=== PATIENT | male | born 1950 | race Caucasian/White ===

== ENCOUNTER 2019-12-17 08:18 | Inpatient (IN) | payer MEDICARE, OTHER ==
[~2019-12-17] VITALS: Ht 185.4 cm; Wt 95.9 kg
[2019-12-17 08:59] LABS: BASOPHILS % (AUTO) 0.3 % (0-1); EOSINOPHILS # (AUTO) 0.1 X10'3 (0-0.9); HEMATOCRIT 40.9 % (42.0-52.0); LYMPHOCYTES # (AUTO) 0.7 X10'3 (1.1-4.8); LYMPHOCYTES % (AUTO) 8.9 % (21-51); MEAN CORPUSCULAR HEMOGLOBIN 31.8 PG (27.0-31.0); MEAN CORPUSCULAR HGB CONC 34.3 g/dL (33.0-36.5); MEAN CORPUSCULAR VOLUME 92.5 FL (78-98); MONOCYTES # (AUTO) 1.5 X10'3 (0-0.9); MONOCYTES % (AUTO) 18.1 % (2-12); NEUTROPHILS # (AUTO) 5.8 X10'3 (1.8-7.7); NEUTROPHILS % (AUTO) 71.7 % (42-75); PLATELET COUNT 332 X10'3 (140-440); RED BLOOD COUNT 4.42 X10'6 (4.70-6.10); RED CELL DISTRIBUTION WIDTH 13.5 % (11.5-14.5); WHITE BLOOD COUNT 8.1 X10'3 (4.5-11.0)
[2019-12-17 09:07] LABS: CLARITY,URINE CLEAR (Clear); GLUCOSE, URINE NEGATIVE (Neg); KETONES,URINE 15 mg/dl (Neg); LEUKOCYTE ESTERASE ,URINE NEGATIVE (Neg); NITRITES, URINE NEGATIVE (Neg); OCCULT BLOOD,URINE TRACE-INTACT (Neg); PH,URINE 6.5 (4.8-8.0); PROTEIN,URINE 30 mg/dl (Neg); UROBILINOGEN,URINE 0.2 E.U/dL (0.2-1.0)
[2019-12-17 09:15] LABS: COLOR,URINE DARK YELLOW (Yellow); UA COLLECTION TYPE VOIDED
[2019-12-17 09:18] LABS: BACTERIA,URINE FEW /HPF (Neg); MUCUS STRANDS FEW /LPF (Neg); RBC,URINE 0-2 /HPF (0-2); SQUAMOUS EPITHELIAL CELL,UR FEW /LPF (FEW); WBC,URINE 0-4 /HPF (0-4)
[2019-12-17 09:22] LABS: ALANINE AMINOTRANSFERASE 30 U/L (12-78); ALBUMIN 3.3 G/DL (3.4-5.0); ALBUMIN/GLOBULIN RATIO 0.9 (1.1-1.5); ALKALINE PHOSPHATASE 39 IU/L (46-116); ANION GAP 5 (8-16); ASPARTATE AMINO TRANSFERASE 22 U/L (10-37); BILIRUBIN,TOTAL 0.8 MG/DL (0.1-1.0); BLOOD UREA NITROGEN 17 MG/DL (7-18); BUN/CREATININE RATIO 12.9 (5.4-32.0); CALCIUM 8.5 MG/DL (8.5-10.1); CHLORIDE 89 MMOL/L (99-107); CREATININE 1.32 MG/DL (0.60-1.10); GLUCOSE 128 MG/DL (70-104); LIPASE 341 U/L (73-393); POTASSIUM 3.3 MMOL/L (3.5-5.1); SODIUM 126 MMOL/L (135-145); TOTAL PROTEIN 7.1 G/DL (6.4-8.2); TROPONIN I < 0.04 NG/ML (0.0-0.05); eGFR 53 ML/MIN
[2019-12-17] MEDS ORDERED: normal saline 1000ml 1,000 ML IV ONE (09:40)
[2019-12-17 09:44] LABS: PLATELET ESTIMATE NORMAL; TOTAL CELLS COUNTED 100
[2019-12-17] MEDS ORDERED: potassium Cl 10 mEq/100mL bag IV ONE (09:45)
[2019-12-17] MEDS ORDERED: LIDOcaine 2% 10ml TOPICAL JELLY (Urojet) MM ONE (09:45)
[2019-12-17] MEDS ORDERED: magnesium 2GM in 50ml NS 50 ML IV PRN (10:05)
[2019-12-17] MEDS ORDERED: potassium Cl 20 mEq SR tablet PO PRN ×2 (10:05)
[2019-12-17] MEDS ORDERED: acetaminophen 325mg tablet PO PRN (10:05)
[2019-12-17] MEDS ORDERED: magnesium 4gm in 100ml NS 100 ML IV PRN (10:05)
[2019-12-17] MEDS ORDERED: magnesium Cl slow-release 64mg tablet PO PRN (10:05)
[2019-12-17] MEDS ORDERED: potassium CL 10mEq/100ml bag 100 ML IV PRN (10:05)
[2019-12-17] MEDS ORDERED: METR-159 PO (10:18)
[2019-12-17] MEDS ORDERED: LEVO500T89 PO (10:18)
[2019-12-17] MEDS ORDERED: VALS1TAB76 PO (10:20)
[2019-12-17] MEDS ORDERED: ONDA8TAB13 PO (10:20)
[2019-12-17] MEDS ORDERED: ALPR0.255 PO (10:20)
[2019-12-17] MEDS ORDERED: SODI650T29 PO (10:24)
--- NOTE | 2019-12-17 11:14 | NUR ---
Patient in room ED 6. I have received report from Sabina MILES and had the opportunity to ask questions and assume patient care.
[2019-12-17 11:35] VITALS: BP 136/73
--- NOTE | 2019-12-17 16:31 | NUR ---
250cc intake of ice chips as ordered. Patient has been clamped for an hour, tolerating well, no N/V. Addendum: 12/17/19 at 1632 by Mery Su RN Amended: Links added.
--- NOTE | 2019-12-17 18:23 | NUR ---
Problems reprioritized. Patient report given, questions answered & plan of care reviewed with Jen Bowen RN.
--- NOTE | 2019-12-17 18:35 | NUR ---
Patient in room [facility]. I have received report from GINGER Ordonez and had the opportunity to ask questions and assume patient care. Addendum: 12/17/19 at 1835 by Sudha Gayle RN Amended: Links added.
[2019-12-17] MEDS: normal saline 1000ml 1,000 ML IV SCH ×2 (19:30→20:05)
[2019-12-17] MEDS: potassium CL 10mEq/100ml bag 100 ML IV PRN ×3 (19:31→22:39)
[2019-12-17 20:00] VITALS: BP 136/67
[2019-12-17] MEDS: K and/or MAG REPLACEMENT MC SCH (20:00)
[2019-12-17] MEDS: diphenhydrAMINE 50 mg/ml inj IV PRN (22:50)
--- NOTE | 2019-12-17 23:10 | NUR ---
patient's NG tube has no output noted at all during the day shift, got an order to flush it and started draining dark green viscous output, tube started backing up and not draining at all due to thick output, called Dr. Martinez with order to flush q4h and low cont suction.
[2019-12-18] VITALS: BP 136/64
[2019-12-18] MEDS: potassium CL 10mEq/100ml bag 100 ML IV PRN (01:00)
[2019-12-18] MEDS: ondansetron/PF 4mg/2ml inj IV PRN ×2 (02:31→09:42)
[2019-12-18 05:08] LABS: BASOPHILS % (AUTO) 0.3 % (0-1); EOSINOPHILS # (AUTO) 0.1 X10'3 (0-0.9); EOSINOPHILS % (AUTO) 0.9 % (0-6); HEMOGLOBIN 13.5 g/dl (14.0-17.9); LYMPHOCYTES # (AUTO) 0.9 X10'3 (1.1-4.8); LYMPHOCYTES % (AUTO) 11.6 % (21-51); MEAN CORPUSCULAR HEMOGLOBIN 31.8 PG (27.0-31.0); MEAN CORPUSCULAR HGB CONC 34.7 g/dL (33.0-36.5); MEAN CORPUSCULAR VOLUME 91.8 FL (78-98); MEAN PLATELET VOLUME 7.1 FL (7.4-10.4); MONOCYTES # (AUTO) 1.3 X10'3 (0-0.9); MONOCYTES % (AUTO) 17.3 % (2-12); NEUTROPHILS # (AUTO) 5.5 X10'3 (1.8-7.7); NEUTROPHILS % (AUTO) 69.9 % (42-75); PLATELET COUNT 307 X10'3 (140-440); RED BLOOD COUNT 4.25 X10'6 (4.70-6.10); RED CELL DISTRIBUTION WIDTH 13.3 % (11.5-14.5); WHITE BLOOD COUNT 7.8 X10'3 (4.5-11.0)
[2019-12-18 05:12] LABS: ALBUMIN 2.9 G/DL (3.4-5.0); ANION GAP 6 (8-16); BLOOD UREA NITROGEN 17 MG/DL (7-18); BUN/CREATININE RATIO 16.2 (5.4-32.0); CALCIUM 7.9 MG/DL (8.5-10.1); CHLORIDE 91 MMOL/L (99-107); CREATININE 1.05 MG/DL (0.60-1.10); GLUCOSE 114 MG/DL (70-104); MAGNESIUM 2.4 MG/DL (1.5-2.4); POTASSIUM 3.5 MMOL/L (3.5-5.1); SODIUM 126 MMOL/L (135-145); TOTAL CARBON DIOXIDE 28.7 MMOL/L (24-32); eGFR 70 ML/MIN
[2019-12-18] MEDS: normal saline 1000ml 1,000 ML IV SCH (05:30)
--- NOTE | 2019-12-18 06:35 | NUR ---
Patient in room [facility] 360. I have received report from Jen Cassidy RN and had the opportunity to ask questions and assume patient care.
--- NOTE | 2019-12-18 06:35 | NUR ---
Problems reprioritized. Patient report given, questions answered & plan of care reviewed with GINGER Dominguez. Addendum: 12/18/19 at 0635 by Sudha Gayle RN Amended: Links added.
[2019-12-18 07:30] LABS: PLATELET ESTIMATE NORMAL; TOTAL CELLS COUNTED 100
[2019-12-18 08:00] VITALS: BP 143/74
[2019-12-18] MEDS: K and/or MAG REPLACEMENT MC SCH ×2 (08:00→20:00)
--- NOTE | 2019-12-18 09:30 | NUR ---
Flushed pt's NG tube several times and aspirated back dark green, viscous content. Very minimal output after flushing. Spoke with pt about placing larger size NG tube. Patient agreeable. Previous 16 Fr NG tube removed with no issues, 18 Fr NG tube placed and patient tolerated well. NG tube now suctioning properly and 1100 dark green output was noted after new NG tube placement.
[2019-12-18] MEDS: morphine 2 MG/ML inj. syringe IV PRN (09:39)
[2019-12-18 11:50] VITALS: BP 146/70
--- NOTE | 2019-12-18 14:00 | NUR ---
patient seen unhooking his own NG tube and ambulating hallway. Communicated to patient that if he would like to ambulate to notify nursing staff, so RN can manage his NG tube.
[2019-12-18] MEDS: Chloraseptic (Phenol) Spray 177ml MM PRN ×2 (15:30→20:01)
[2019-12-18] MEDS: potassium Cl 20mEq in D5-NS 1,000 ML IV SCH ×3 (16:13→23:12)
[2019-12-18 20:00] VITALS: BP 147/94
[2019-12-18] MEDS: diphenhydrAMINE 50 mg/ml inj IV PRN (22:10)
[2019-12-19] VITALS (16 sets, daily range): BP systolic 115–163; BP diastolic 55–84
[2019-12-19 05:03] LABS: BASOPHILS % (AUTO) 0.2 % (0-1); EOSINOPHILS # (AUTO) 0.1 X10'3 (0-0.9); EOSINOPHILS % (AUTO) 0.7 % (0-6); HEMATOCRIT 39.5 % (42.0-52.0); HEMOGLOBIN 13.5 g/dl (14.0-17.9); LYMPHOCYTES % (AUTO) 10.8 % (21-51); MEAN CORPUSCULAR HEMOGLOBIN 30.9 PG (27.0-31.0); MEAN CORPUSCULAR HGB CONC 34.1 g/dL (33.0-36.5); MEAN CORPUSCULAR VOLUME 90.8 FL (78-98); MEAN PLATELET VOLUME 6.8 FL (7.4-10.4); MONOCYTES # (AUTO) 1.3 X10'3 (0-0.9); MONOCYTES % (AUTO) 14.2 % (2-12); NEUTROPHILS % (AUTO) 74.1 % (42-75); PLATELET COUNT 351 X10'3 (140-440); RED BLOOD COUNT 4.36 X10'6 (4.70-6.10); RED CELL DISTRIBUTION WIDTH 13.4 % (11.5-14.5); WHITE BLOOD COUNT 9.5 X10'3 (4.5-11.0)
[2019-12-19 05:10] LABS: ALBUMIN 2.7 G/DL (3.4-5.0); ANION GAP 3 (8-16); BLOOD UREA NITROGEN 13 MG/DL (7-18); BUN/CREATININE RATIO 13.8 (5.4-32.0); CALCIUM 7.7 MG/DL (8.5-10.1); CHLORIDE 96 MMOL/L (99-107); CREATININE 0.94 MG/DL (0.60-1.10); GLUCOSE 169 MG/DL (70-104); MAGNESIUM 2.2 MG/DL (1.5-2.4); POTASSIUM 3.5 MMOL/L (3.5-5.1); SODIUM 129 MMOL/L (135-145); TOTAL CARBON DIOXIDE 29.6 MMOL/L (24-32); eGFR 79 ML/MIN
[2019-12-19] MEDS ORDERED: LIDOcaine 1% 30ml preserv. free vial ONE (06:40)
[2019-12-19] MEDS ORDERED: BUPIVAcaine/PF 2.5 mg/ml (0.25%) 30ml vial ONE (06:40)
--- NOTE | 2019-12-19 06:47 | NUR ---
Problems reprioritized. Patient report given, questions answered & plan of care reviewed with Dai MILES.
[2019-12-19] MEDS: ondansetron/PF 4mg/2ml inj IV PRN (07:53)
[2019-12-19] MEDS: K and/or MAG REPLACEMENT MC SCH ×2 (08:00→20:00)
--- NOTE | 2019-12-19 11:29 | NUR ---
BG obtain and WNL. PT. taken off floor down to OR.
--- NOTE | 2019-12-19 11:32 | NUR ---
Called report to recovery spoke to Brady. Notified Eder in OR about low sodium and Ca in lab work, although this RN was notified that MD Jeronimo was already aware of these values from machinist 2nd shift RN.
[2019-12-19] MEDS: potassium Cl 20mEq in D5-NS 1,000 ML IV SCH ×2 (11:35→18:15)
[2019-12-19] MEDS ORDERED: ringers solution, lacted 1,000 ML IV SCH (11:56)
[2019-12-19] MEDS ORDERED: hydrALAZINE 20mg/ml inj. IV PRN (12:00)
[2019-12-19] MEDS ORDERED: morphine 2 MG/ML inj. syringe IV PRN (12:00)
[2019-12-19] MEDS ORDERED: labetalol 20mg/4ml (5mg/ml) syringe IV PRN (12:00)
[2019-12-19] MEDS ORDERED: fentaNYL/PF 50MCG/1 ML 2ML syringe IV PRN ×2 (12:00)
[2019-12-19] MEDS ORDERED: rocuronium 10mg/ml inj IV ONE ×2 (12:00→12:15)
[2019-12-19] MEDS ORDERED: morphine 4 MG/ML inj SYRINge IV PRN (12:00)
[2019-12-19] MEDS ORDERED: glycopyrrolate 0.2mg/ml inj ONE (12:00)
[2019-12-19] MEDS ORDERED: sevoflurane 250ml liquid IH ONE (12:00)
[2019-12-19] MEDS ORDERED: neostigmine methylsulfate 1 MG/ML 10ml vial ONE (12:00)
[2019-12-19] MEDS ORDERED: ondansetron/PF 4mg/2ml inj IV PRN (12:00)
[2019-12-19] MEDS ORDERED: midazolam 2 mg/2 ml injection ONE (12:05)
[2019-12-19] MEDS ORDERED: fentaNYL/PF 50MCG/1 ML 2ML syringe ONE (12:05)
[2019-12-19] MEDS ORDERED: propofol inj 20 ML IV ONE (12:15)
[2019-12-19] MEDS ORDERED: ondansetron/PF 4mg/2ml inj ONE (12:15)
[2019-12-19] MEDS ORDERED: LIDOcaine 2% (20mg/ml) 5ml vial ONE (12:15)
[2019-12-19] MEDS ORDERED: dexamethasone sod phosphate 4mg/ml inj. ONE (12:15)
[2019-12-19] MEDS ORDERED: ceFAZolin 1000mg inj ONE (12:18)
[2019-12-19] MEDS ORDERED: phenylephrine 10mg/ml inj. ONE (12:28)
[2019-12-19] MEDS ORDERED: BUPIVAcaine/PF 2.5mg/ml (0.25%) 10ml vial ONE (12:53)
[2019-12-19] MEDS ORDERED: BUPIVACAINE liposomal/PF 13.3 MG/ML vial IM ONE (12:53)
--- NOTE | 2019-12-19 14:08 | NUR ---
Received from OR via , accompanied by Anesthesiologist DR STATON and report given by Anesthesiolgist. AWAKENS TO VOIXCE. VITALS STABLE. DRESSINGS DI. RALPH PAIN. NG TO LCS. ZABALA WITH CLEAR URINE.
--- NOTE | 2019-12-19 14:57 | NUR ---
Report called to receiving nurse. Transferred via BED Belongings . Special Issues communicated to receiving nurse. AWAKE AND ORIENTED. VITALS STABLE. DRESSINGS DI. RALPH PAIN. TO SURGICAL RM 360A AT THIS TIME.
--- NOTE | 2019-12-19 18:59 | NUR ---
Gave report to Anay MILES. Pt. comfortable in room with no needs at this time.
[2019-12-19] MEDS: diphenhydrAMINE 50 mg/ml inj IV PRN (21:18)
[2019-12-19] MEDS: Chloraseptic (Phenol) Spray 177ml MM PRN (21:18)
[2019-12-20] VITALS: BP_SYST 123; BP_SYST 127; BP_DIAS 64; BP_DIAS 71
[2019-12-20] MEDS: potassium Cl 20mEq in D5-NS 1,000 ML IV SCH ×4 (00:55→22:00)
--- NOTE | 2019-12-20 05:01 | NUR ---
Patient in room [facility] . I have received report from Dai MILES and had the opportunity to ask questions and assume patient care Addendum: 12/20/19 at 0502 by Anay Zarate RN Time incorrect. Received report for room 360A from Dai on 12/18 @9104.
--- NOTE | 2019-12-20 06:32 | NUR ---
Problems reprioritized. Patient report given, questions answered & plan of care reviewed with Dai MILES.
--- NOTE | 2019-12-20 06:59 | NUR ---
Pt. is VERY EAGER to go home. Discussed the option and consequences of leaving against AMA. Will notify MD Jeronimo during rounds.
[2019-12-20 07:12] LABS: BASOPHILS # (AUTO) 0.1 X10'3 (0-0.2); BASOPHILS % (AUTO) 0.4 % (0-1); EOSINOPHILS # (AUTO) 0.1 X10'3 (0-0.9); EOSINOPHILS % (AUTO) 0.4 % (0-6); HEMATOCRIT 39.9 % (42.0-52.0); HEMOGLOBIN 13.4 g/dl (14.0-17.9); LYMPHOCYTES # (AUTO) 1.5 X10'3 (1.1-4.8); LYMPHOCYTES % (AUTO) 9.6 % (21-51); MEAN CORPUSCULAR HEMOGLOBIN 31.4 PG (27.0-31.0); MEAN CORPUSCULAR HGB CONC 33.7 g/dL (33.0-36.5); MEAN CORPUSCULAR VOLUME 93.3 FL (78-98); MONOCYTES # (AUTO) 1.7 X10'3 (0-0.9); MONOCYTES % (AUTO) 10.6 % (2-12); NEUTROPHILS # (AUTO) 12.5 X10'3 (1.8-7.7); PLATELET COUNT 335 X10'3 (140-440); RED BLOOD COUNT 4.28 X10'6 (4.70-6.10); RED CELL DISTRIBUTION WIDTH 13.6 % (11.5-14.5); WHITE BLOOD COUNT 15.8 X10'3 (4.5-11.0)
[2019-12-20 07:42] LABS: ALBUMIN 2.5 G/DL (3.4-5.0); ANION GAP 8 (8-16); BLOOD UREA NITROGEN 12 MG/DL (7-18); BUN/CREATININE RATIO 11.8 (5.4-32.0); CHLORIDE 101 MMOL/L (99-107); CREATININE 1.02 MG/DL (0.60-1.10); GLUCOSE 140 MG/DL (70-104); MAGNESIUM 2.2 MG/DL (1.5-2.4); SODIUM 135 MMOL/L (135-145); TOTAL CARBON DIOXIDE 26.3 MMOL/L (24-32); eGFR 72 ML/MIN
[2019-12-20 08:00] VITALS: BP 123/70
[2019-12-20] MEDS: K and/or MAG REPLACEMENT MC SCH ×2 (08:00→20:00)
--- NOTE | 2019-12-20 08:15 | NUR ---
MD HEIN NOTIFIED THAT PT. IS VERBALLY PUSHY ABOUT LEAVING. bECOMING AGITATED AND STATED "JUST RIP MY ZABALA OUT PLEASE" YOU GUYS AREN'T DOING ANYTHING MY CANT DO. ORDERS GIVEN TO REMOVE F/C. F/C REMOVED 350ML OUTPUT. EARLIEST PT. CAN DC IS MONDAY NG AND IV TO REMAIN IN PT.
[2019-12-20 08:24] LABS: ALANINE AMINOTRANSFERASE 24 U/L (12-78); ALBUMIN/GLOBULIN RATIO 0.8 (1.1-1.5); ALKALINE PHOSPHATASE 36 IU/L (46-116); ASPARTATE AMINO TRANSFERASE 20 U/L (10-37); BILIRUBIN,TOTAL 0.5 MG/DL (0.1-1.0); TOTAL PROTEIN 5.8 G/DL (6.4-8.2)
--- NOTE | 2019-12-20 09:41 | NUR ---
PAGER ID: [phone] MESSAGE: Irving Hernandez 360A spoke to Arline r/t why med req was DC instead of put on hold. Issue was not addressed. pt. VERY agitated. Consider Xanax order PLEASE? Pt. wants cough drops for sore throat. Sips and chips diet only per Jeronimo.
[2019-12-20] MEDS ORDERED: ALPR0.5T8 PO (09:45)
--- NOTE | 2019-12-20 09:47 | NUR ---
PAGER ID: [phone] MESSAGE: Please call surgical and speak with GINGER Dent03
[2019-12-20 11:00] VITALS: BP 130/65
[2019-12-20] MEDS: morphine 2 MG/ML inj. syringe IV PRN (11:29)
--- NOTE | 2019-12-20 13:30 | NUR ---
Pt. bladder scanned 227ml shown in bladder. Pt. encouraged to ambulate to encourage voiding as well.
--- NOTE | 2019-12-20 15:02 | NUR ---
PT. VOIDED 100ML. POST VOID RESIDUAL BLADDER SCAN 224ML.
--- NOTE | 2019-12-20 15:04 | NUR ---
pT VERY RUDE YELULÚING AT RN. STATED THAAT THIS RN WAS "THREATENING HIM WITH A CATHETER" WHEN THIS RN DID NOT EVEN MENTION A CATHEDUR AND JUST WANTED TO OBTAIN POST VOID RESIDUAL. POLITELY EXPLAINED THAT PT. HAD A RIGHT TO REFUSE BLADDER SCAN OR ANY PROCEDURE. PT. STARTED YELLING AND RAISING HIS VOICE, "I AM NOT REFUSING! YOU JUST WANT TO DO THIS BECAUSE YOU WANT TO BE MEAN TO ME." CHARGE NURSE NOTIFIED. CAME TO ROOM MODERATOR. EXPLAINED PT. DOES NOT NEED A CATHETER AND THAT HE COULD REFUSE ANY SERVICE WELL. PT STATED THAT HE WAS OK WITH BLADDER SCAN JUST NOT A CATHETER.
[2019-12-20] MEDS: LORazepam 2 mg/ml vial IV PRN (15:51)
--- NOTE | 2019-12-20 16:08 | NUR ---
Called pharm for cough drops. Pt. very agitated and needs his cough drops "NOW". Ativan given per order. Pt. currently ambulating.
[2019-12-20 18:00] VITALS: BP 127/69
--- NOTE | 2019-12-20 18:51 | NUR ---
Patient in room [facility]. I have received report from Dai MILES and had the opportunity to ask questions and assume patient care.
--- NOTE | 2019-12-20 18:54 | NUR ---
REPORT GIVEN TO JOSEPHINE MILES ORIENTED AND PAWAN MILES.
--- NOTE | 2019-12-20 19:06 | NUR ---
GREEN OUTPUT, HIGH INTAKE OF ICE CHIPS TODAY Addendum: 12/20/19 at 1906 by Dai Byrne RN Amended: Links added.
[2019-12-20] MEDS: Chloraseptic (Phenol) Spray 177ml MM PRN (22:01)
[2019-12-20] MEDS: diphenhydrAMINE 50 mg/ml inj IV PRN (22:03)
[2019-12-20 23:48] VITALS: BP 123/71
--- NOTE | 2019-12-21 02:59 | NUR ---
pt stated that he felt like he "did not receive good care during the day". pt called and stated that he "had not had a good day" and wanted to check on him. At the beginning of the shift I changed the patient linens while he was up to walk. pt was cooperative, calm and appreciative of care received
[2019-12-21] MEDS: potassium Cl 20mEq in D5-NS 1,000 ML IV SCH ×3 (03:35→09:48)
[2019-12-21 04:52] LABS: BASOPHILS % (AUTO) 0.2 % (0-1); EOSINOPHILS # (AUTO) 0.1 X10'3 (0-0.9); HEMATOCRIT 34.5 % (42.0-52.0); HEMOGLOBIN 11.6 g/dl (14.0-17.9); LYMPHOCYTES # (AUTO) 1.4 X10'3 (1.1-4.8); LYMPHOCYTES % (AUTO) 11.6 % (21-51); MEAN CORPUSCULAR HEMOGLOBIN 31.2 PG (27.0-31.0); MEAN CORPUSCULAR HGB CONC 33.7 g/dL (33.0-36.5); MEAN CORPUSCULAR VOLUME 92.8 FL (78-98); MEAN PLATELET VOLUME 6.9 FL (7.4-10.4); MONOCYTES # (AUTO) 1.2 X10'3 (0-0.9); MONOCYTES % (AUTO) 9.6 % (2-12); NEUTROPHILS # (AUTO) 9.6 X10'3 (1.8-7.7); NEUTROPHILS % (AUTO) 77.6 % (42-75); PLATELET COUNT 325 X10'3 (140-440); RED BLOOD COUNT 3.72 X10'6 (4.70-6.10); RED CELL DISTRIBUTION WIDTH 13.4 % (11.5-14.5); WHITE BLOOD COUNT 12.4 X10'3 (4.5-11.0)
[2019-12-21 04:59] LABS: ALBUMIN 2.2 G/DL (3.4-5.0); ANION GAP 6 (8-16); BLOOD UREA NITROGEN 10 MG/DL (7-18); BUN/CREATININE RATIO 12.3 (5.4-32.0); CALCIUM 7.3 MG/DL (8.5-10.1); CHLORIDE 105 MMOL/L (99-107); CREATININE 0.81 MG/DL (0.60-1.10); GLUCOSE 130 MG/DL (70-104); MAGNESIUM 1.9 MG/DL (1.5-2.4); POTASSIUM 3.8 MMOL/L (3.5-5.1); SODIUM 136 MMOL/L (135-145); eGFR > 90 ML/MIN
--- NOTE | 2019-12-21 06:29 | NUR ---
Problems reprioritized. Patient report given, questions answered & plan of care reviewed with Clarice MILES.
--- NOTE | 2019-12-21 06:38 | NUR ---
Patient in room [facility]. I have received report from Abigail MILES and had the opportunity to ask questions and assume patient care.
[2019-12-21 07:00] VITALS: BP 136/70
[2019-12-21] MEDS: K and/or MAG REPLACEMENT MC SCH ×2 (08:00→20:00)
--- NOTE | 2019-12-21 09:07 | NUR ---
Dr. Arellano covering for Dr Jeronimo. Dr Dumas ordered to DC NG Tube, and added Lovenox to pt's med list.
[2019-12-21] MEDS: benzocaine/menthol oral lozeng 1 EACH BOX MM PRN ×2 (09:47→15:46)
[2019-12-21] MEDS: LORazepam 2 mg/ml vial IV PRN ×2 (09:47→19:54)
[2019-12-21] MEDS: enoxaparin 30mg/0.3ml syringe SUBCUT SCH (10:01)
[2019-12-21 11:00] VITALS: BP 138/84
[2019-12-21 18:00] VITALS: BP 162/92
--- NOTE | 2019-12-21 18:31 | NUR ---
Problems reprioritized. Patient report given, questions answered & plan of care reviewed with Prudence RN.
--- NOTE | 2019-12-21 20:29 | NUR ---
Problems reprioritized. Patient report given, questions answered & plan of care reviewed with Jenae MILES.
[2019-12-21] MEDS: diphenhydrAMINE 50 mg/ml inj IV PRN (22:44)
[2019-12-22] VITALS: BP 158/87
[2019-12-22] MEDS: potassium Cl 20mEq in D5-NS 1,000 ML IV SCH (01:50)
[2019-12-22] MEDS: ondansetron/PF 4mg/2ml inj IV PRN (01:58)
[2019-12-22 05:15] LABS: ALBUMIN 2.3 G/DL (3.4-5.0); ANION GAP 7 (8-16); BLOOD UREA NITROGEN 5 MG/DL (7-18); BUN/CREATININE RATIO 7.4 (5.4-32.0); CALCIUM 7.5 MG/DL (8.5-10.1); CHLORIDE 102 MMOL/L (99-107); CREATININE 0.68 MG/DL (0.60-1.10); GLUCOSE 118 MG/DL (70-104); MAGNESIUM 1.8 MG/DL (1.5-2.4); POTASSIUM 4.1 MMOL/L (3.5-5.1); SODIUM 131 MMOL/L (135-145); TOTAL CARBON DIOXIDE 22.2 MMOL/L (24-32); eGFR > 90 ML/MIN
[2019-12-22 05:16] LABS: BASOPHILS % (AUTO) 0.3 % (0-1); EOSINOPHILS # (AUTO) 0.1 X10'3 (0-0.9); HEMATOCRIT 34.4 % (42.0-52.0); HEMOGLOBIN 11.6 g/dl (14.0-17.9); LYMPHOCYTES # (AUTO) 1.3 X10'3 (1.1-4.8); LYMPHOCYTES % (AUTO) 12.3 % (21-51); MEAN CORPUSCULAR HEMOGLOBIN 31.1 PG (27.0-31.0); MEAN CORPUSCULAR HGB CONC 33.9 g/dL (33.0-36.5); MEAN CORPUSCULAR VOLUME 91.9 FL (78-98); MEAN PLATELET VOLUME 7.2 FL (7.4-10.4); MONOCYTES # (AUTO) 0.9 X10'3 (0-0.9); MONOCYTES % (AUTO) 8.4 % (2-12); NEUTROPHILS # (AUTO) 8.1 X10'3 (1.8-7.7); PLATELET COUNT 324 X10'3 (140-440); RED BLOOD COUNT 3.75 X10'6 (4.70-6.10); RED CELL DISTRIBUTION WIDTH 13.6 % (11.5-14.5); WHITE BLOOD COUNT 10.4 X10'3 (4.5-11.0)
--- NOTE | 2019-12-22 06:03 | NUR ---
Problems reprioritized. Patient report given, questions answered & plan of care reviewed with Clarice MILES.
--- NOTE | 2019-12-22 06:14 | NUR ---
Patient in room [facility]. I have received report from Kassy MILES and had the opportunity to ask questions and assume patient care.
[2019-12-22 07:00] VITALS: BP_SYST 130; BP_SYST 159; BP_DIAS 82; BP_DIAS 85
[2019-12-22] MEDS: enoxaparin 30mg/0.3ml syringe SUBCUT SCH (07:55)
[2019-12-22] MEDS: K and/or MAG REPLACEMENT MC SCH (08:00)
[2019-12-22] MEDS: benzocaine/menthol oral lozeng 1 EACH BOX MM PRN (09:52)
[2019-12-22 11:00] VITALS: BP 146/101
--- NOTE | 2019-12-22 12:30 | NUR ---
Pt DC to home with . Pt stable, A & O, and in no apparent discomfort. Pt verbalizes understanding of all DC instructions. Pt packed all of his belongings and were carried out by aid to the car. pt wheeled to the front where picked him up to go home. Pt is so happy to go home and states he is grateful for his care.
--- NOTE | 2019-12-25 15:09 | NUR ---
Case Management DC follow up: Spoke to pt via telephone. s/p: sm [place] r/t post op complication/previous cholecysectomy. Reports: "feeling alright" Denies: SOB, resp distress, acute/persistent CP, SALDIVAR, blurry vision, N/V, emergent general pain, abd distention, vertigo, syncope, fever, unexplained bruising, bleeding. Eating soft diet, having more solid BMs. states lower back is bothering him, but "that's normal". Verbalizes understanding of s/s that would warrant 9-11/ER visit for further evaluation. Verbalizes understanding of current alprazolam, taking as ordered, no ase noted. Acknowledges need to follow-up/keep appts w/PCP/Anjana 12/31/19. Dr Jeronimo 12/30/19. Questions answered, needs met at [place]. No further questions at this time.
== END 2019-12-22 12:38 | disposition home or self-care (01) | DRG 345 ==
LOC: ER 08:19 → ED HOLD 10:05 → SUR 3N 11:27
PROVIDERS: ADMIT Internal Medicine; ATTEND Internal Medicine
PROC: 0D9670Z Drainage of Stomach with Drainage Device, Via Natural or Artificial Opening (ICD-10-PCS; 2019-12-17)
PROC: 0DJD4ZZ Inspection of Lower Intestinal Tract, Percutaneous Endoscopic Approach (ICD-10-PCS; 2019-12-19)
PROC: 8E0W3CZ Robotic Assisted Procedure of Trunk Region, Percutaneous Approach (ICD-10-PCS; 2019-12-19)
PROC: 0DC80ZZ Extirpation of Matter from Small Intestine, Open Approach (ICD-10-PCS; principal; 2019-12-19 12:00)
DX: K56.601 Complete intestinal obstruction, unspecified as to cause (principal); N17.9 Acute kidney failure, unspecified; E87.1 Hypo-osmolality and hyponatremia; T18.3XXA Foreign body in small intestine, initial encounter; X58.XXXA Exposure to other specified factors, initial encounter; E86.0 Dehydration; I10 Essential (primary) hypertension; F41.9 Anxiety disorder, unspecified; Z80.52 Family history of malignant neoplasm of bladder; Z82.49 Family history of ischemic heart disease and other diseases of the circulatory system; Z90.49 Acquired absence of other specified parts of digestive tract; Z79.899 Other long term (current) drug therapy; Y93.89 Activity, other specified; Y92.89 Other specified places as the place of occurrence of the external cause; Y99.8 Other external cause status
CPT/HCPCS: 36415; 74018; 74176; 80048; 80053; 80076; 81001; 82948; 83605; 83690; 83735; 84145; 84484; 85025; 85730; 87081; 93005; 99285; A4215; A4618; C9290; G0378; J0690; J1100; J1200; J1650; J2001; J2060; J2250; J2270; J2370; J2405; J2704; J2710; J3010; J3480; J3490; J7030

== ENCOUNTER 2024-07-04 13:56 | Outpatient (CLI) | payer BC, OTHER ==
[~2024-07-04 13:56] MED LIST: ALPR0.5T8 PO
== END 2024-07-04 23:59 | disposition home or self-care (01) ==
LOC: MRI02 13:56
PROVIDERS: ATTEND Nurse Practitioner Adult Health
DX: M47.817 Spondylosis without myelopathy or radiculopathy, lumbosacral region (principal); M54.50 Low back pain, unspecified; M48.07 Spinal stenosis, lumbosacral region; M51.369 Other intervertebral disc degeneration, lumbar region without mention of lumbar back pain or lower extremity pain; M25.78 Osteophyte, vertebrae
CPT/HCPCS: 72148